=== PATIENT | female | born 2000 | race Caucasian/White ===

== ENCOUNTER 2020-07-07 00:31 | Emergency (ER) | payer MEDICAID ==
[~2020-07-07] VITALS: Ht 162.6 cm; Wt 93.0 kg
[2020-07-07 00:38] VITALS: Ht 162.6 cm; Wt 93.0 kg
[2020-07-07 01:40] VITALS: BP 138/85
== END 2020-07-07 01:40 | disposition home or self-care (01) ==
LOC: ED 00:31
DX: R51 Headache (principal); M54.2 Cervicalgia; Z88.0 Allergy status to penicillin